=== PATIENT | female | born 1985 | race African-American/Black ===

== ENCOUNTER 2018-10-02 11:18 | Emergency (ER) | payer OTHER, MEDICAID ==
[~2018-10-02] VITALS: Ht 157.5 cm; Wt 76.2 kg
[2018-10-02 11:25] VITALS: BP 152/99
[2018-10-02] MEDS ORDERED: AUGMENTIN 875-1 EACH PO (11:51)
[2018-10-02] MEDS ORDERED: NABUMETONE 750750 M1 PO (11:51)
[2018-10-02] MEDS ORDERED: ONDANSETRON HCL4 M2 PO (11:51)
== END 2018-10-02 11:58 | disposition home or self-care (01) ==
LOC: M.ERS 11:18
DX: J01.10 Acute frontal sinusitis, unspecified (principal); J01.00 Acute maxillary sinusitis, unspecified; R11.0 Nausea; G43.909 Migraine, unspecified, not intractable, without status migrainosus; F17.200 Nicotine dependence, unspecified, uncomplicated; Z88.8 Allergy status to other drugs, medicaments and biological substances

== ENCOUNTER 2018-10-12 14:55 | Emergency (ER) | payer OTHER, MEDICAID ==
[~2018-10-12] VITALS: Ht 157.5 cm; Wt 73.5 kg
[~2018-10-12 14:55] MED LIST: AUGMENTIN 875-1 EACH PO; NABUMETONE 750750 M1 PO; ONDANSETRON HCL4 M2 PO
[2018-10-12 15:59] LABS: URINE BILIRUBIN NEGATIVE (Negative); URINE BLOOD 3+ (Negative); URINE CLARITY CLEAR; URINE COLOR YELLOW; URINE GLUCOSE-RANDOM NEGATIVE (Negative); URINE KETONES NEGATIVE (Negative); URINE LEUKOCYTES-REFLEX NEGATIVE (Negative); URINE NITRITE-REFLEX NEGATIVE (Negative); URINE PROTEIN NEGATIVE (Negative); URINE SPECIFIC GRAVITY 1.025 (1.005-1.030); URINE UROBILINOGEN 0.2 E.U./dl (0.2-1.0)
[2018-10-12 16:17] LABS: CRYSTALS None Seen /LPF (None Seen); MUCUS 0-3 Light strn/LPF (None Seen); SQUAMOUS >10 Many /LPF (0-3)
[2018-10-12 16:18] LABS: BACTERIA-REFLEX 1-9 Few /HPF (None Seen); CASTS None Seen /LPF (None Seen); URINE RBC >20 Many /HPF (0-2); URINE WBC-REFLEX None Seen /HPF (0-5)
[2018-10-12 16:40] VITALS: BP 184/97
== END 2018-10-12 16:41 | disposition home or self-care (01) ==
LOC: M.ERS 14:55
PROVIDERS: Nurse Practitioner Family
DX: N76.0 Acute vaginitis (principal); G43.909 Migraine, unspecified, not intractable, without status migrainosus; Z88.8 Allergy status to other drugs, medicaments and biological substances